=== PATIENT | female | born 1950 | race Caucasian/White ===

== ENCOUNTER → 2017-04-05 | Outpatient (CLI) | payer OTHER ==
[~2017-04-05] MED LIST: LEVO75TA PO; OXYB1TAB31 PO; SIMV20TA2 PO
--- NOTE | 2017-04-05 16:10 | DIAGNOSTIC IMAGING REPORT ---
KUB HISTORY: Generalized abdominal pain. Right flank pain. COMPARISON: None. FINDINGS: The bowel gas pattern is unremarkable. There are no dilated loops of small bowel to suggest an obstruction. Moderate stool within the colon. Round calcifications in the deep pelvis are nonspecific but favor phleboliths. There is 1.8 cm stone overlying the right renal shadow. This could reside within the renal pelvis. No left renal calculi. Midline sutures material is noted. No pneumoperitoneum or pneumatosis. There is an additional 1 cm round calcification within the right upper quadrant which may represent a gallstone. IMPRESSION: 1. A 1.8 cm stone overlying the right renal shadow. This could reside within the right renal pelvis. 2. An additional round calcification within the right upper quadrant which may represent a gallstone. 3. Moderate well-formed stool seen throughout the colon. Electronically signed by: Hayder Montoya M.D. 04/05/2017 4:09 PM Dictated Date/Time: 04/05/2017 4:07 PM
== END | disposition home or self-care (01) ==
LOC: C.RAD1850 15:31
PROVIDERS: ATTEND Physician Assistant
DX: R10.9 Unspecified abdominal pain (principal)

== ENCOUNTER → 2017-07-28 | Outpatient (CLI) | payer OTHER ==
[2017-07-28 16:37] LABS: HEMOGLOBIN 14.4 g/dL (12.0-16.0); MEAN CELL VOLUME 87.8 fL (80-100); MEAN CORPUSCULAR HEMOGLOBIN 28.7 pg (25-34); MEAN CORPUSCULAR HGB CONC 32.7 g/dl (32-36); PLATELET COUNT 187 K/uL (130-400); RED CELL DISTRIBUTION WIDTH CV 13.5 % (11.5-14.5); RED CELL DISTRIBUTION WIDTH SD 43.2 fL (36.4-46.3); WHITE BLOOD COUNT 5.57 K/uL (4.8-10.8)
[2017-07-28 17:06] LABS: ALT/SGPT 19 U/L (12-78); AST/SGOT 9 U/L (15-37); BLOOD UREA NITROGEN 14 mg/dl (7-18); CALCIUM 9.7 mg/dl (8.5-10.1); CARBON DIOXIDE 26 mmol/L (21-32); CREATININE 0.78 mg/dl (0.60-1.20); GLUCOSE 96 mg/dl (70-99); POTASSIUM 3.8 mmol/L (3.5-5.1); SODIUM 140 mmol/L (136-145)
[2017-07-28 17:17] LABS: CHOLESTEROL 224 mg/dl (0-200); LDL CHOLESTEROL CALCULATED 134 mg/dl
== END | disposition home or self-care (01) ==
LOC: C.LAB1850 15:36
PROVIDERS: ATTEND Internal Medicine
DX: E03.9 Hypothyroidism, unspecified (principal); E78.5 Hyperlipidemia, unspecified; K21.9 Gastro-esophageal reflux disease without esophagitis; R10.9 Unspecified abdominal pain

== ENCOUNTER 2024-12-30 08:20 | Observation (INO) ==
--- NOTE | 2024-12-30 08:52 | Emergency Department Note ---
Impression & Plan Acute right flank pain, Difficulty urinating, Bilateral ureteral calculi ED Provider Note NAME: Amrita LUTHER AGE: 74 SEX: Female INFORMANT: Patient ED PROVIDER(S): Chu Sapp MD CHIEF COMPLAINT: Flank pain and urinary issues PLAN: Disposition: Admitted Outpatient prescription management: none Referral: None MEDICAL DECISION MAKING: Patient presented because of flank pain. Workup was initiated. CBC and chemistry panel did reveal mild RONNELL. Urinalysis revealed no clear evidence of infection. CT imaging performed and patient was found to have bilateral ureterolithiasis with hydronephrosis. This was very concerning given the lack of urine output and RONNELL. Patient was covered with a dose of IV Rocephin and consultation was made with urology, Dr. Acuña. He recommended emergent urologic intervention. He will see the patient and patient will be admitted by the hospitalist service. Consultation was made with the [facility] hospitalist service. Patient was admitted for further management. Care/management discussed with: investment banking manager, hospitalist, urology Level of care consideration(s): After review of the information above and other included data, I feel the patient requires escalation of care to admission Triage Nursing notes: reviewed and agree them. Vital Signs: reviewed and remarkable for no significant abnormalities Additional History obtained from: none Chronic Medical/Social Conditions affecting care: History of kidney stones Prior/ Outside/ External records reviewed: none Differential Diagnosis: Renal colic, UTI, urinary retention, appendicitis, diverticulitis, mesenteric ischemia, aortic pathology, infections, inflammatory bowel disease, PUD, biliary pathology, as well as other pathologies. Diagnostics, independently interpreted by me: ECG: none Cardiac Monitoring: Cardiac monitoring ordered by me: The patient was placed on continuous cardiac monitoring and observed. It revealed a normal sinus rhythm at 75 beats per minute without ectopy or evidence of dysrhythmia. Medical decision rules: none Imaging studies: CT scan as above HPI: 74 year old Female arrives for evaluation of right flank pain and difficulty urinating. This started a few days ago and is worsening since yesterday. Patient states she has had difficulty urinating since 2100 hrs. last night.. The patient also notes the following associated symptoms, right flank pain. Patient also notes passing a kidney stone 3 days ago. She felt better and thought she was in the clear. The patient has taken nabumetone for relieving factors. Current pain is rated as 6/10. Pt denies LOC, headache, fevers, chills, diaphoresis, visual changes, neck pain, chest pain, breathing difficulties, nausea, vomiting, Left back pain, melena, hematochezia, numbness, weakness, or other complaints.. PAST MEDICAL HISTORY: See Below, kidney stones, hypothyroidism PAST SURGICAL HISTORY: See Below, SOCIAL HISTORY: See Below, retired HOME MEDICATIONS: See Below ALLERGIES: See Below VITALS: See Below PHYSICAL EXAMINATION: GENERAL: Awake, alert, uncomfortable-appearing, in no distress HENT: Normocephalic, atraumatic. Oropharynx unremarkable. EYES: Normal conjunctiva. Sclera non-icteric. NECK: Inspection normal. Non-tender. Supple. No nuchal rigidity. FROM. No masses. RESPIRATORY: Clear to auscultation. No wheezes. No rales. Normal respiratory effort. CARDIAC: Normal rate. Normal rhythm. No murmurs. No rubs. Extremities warm and well perfused. Pulses equal. No JVD. GI: Soft, non-distended. Suprapubic tenderness to palpation. No rebound or guarding. No masses. RECTAL: Deferred. MUSCULOSKELETAL: Atraumatic. Chest examination reveals no tenderness. The back is symmetrical on inspection without obvious abnormality. There is right CVA tenderness to palpation. No joint edema. LOWER EXTREMITIES: Calves are equal size bilaterally and non-tender. No edema. No discoloration. NEURO: Normal sensorium. No sensory or motor deficits noted. SKIN: No rash or jaundice noted. PROCEDURES: none CRITICAL CARE: none OBSERVATION NOTE: none Past Med/Surg History Problem List (Updated 12/30/24 @ 20:04 by Chu Sapp MD) RONNELL (acute kidney injury) Anuria Bilateral kidney stones Bilateral ureteral calculi (Acute) Difficulty urinating (Acute) Acute right flank pain (Acute) Hyperparathyroidism Complicated migraine Current use of proton pump inhibitor Calf pain Lyme disease Vitamin D deficiency (Acute) Nephrolithiasis (Acute) Irritable bowel syndrome with diarrhea (Acute) Hypothyroidism (Acute) Hyperlipidemia (Acute) Gastro-esophageal reflux disease with esophagitis (Acute) Medical History (Updated 12/30/24 @ 20:04 by Chu Sapp MD) Kidney stones Stomach pain Cancer of skin of back removed in office Hypothyroidism Surgical History History of surgery on arm left arm x2 History of gynecologic surgery D&E History of open reduction and internal fixation (ORIF) procedure left ankle--hardware in place History of cystoscopy x2 History of colonoscopy History of esophagogastroduodenoscopy (EGD) History of wisdom tooth extraction S/P exploratory laparotomy at age 12 S/P section Family History Brother Chronic liver disease Coronary heart disease Alcoholism Father Skin cancer Prostate cancer Alcoholism Colorectal cancer Stroke Mother Skin cancer Breast cancer Colorectal cancer Grandmother (Maternal) Coronary heart disease Daughter Down syndrome Other No family history of adverse response to anesthesia Social History Smoking Status: Never smoker Second Hand Exposure: No; Do You Dip or Chew Tobacco: No; Hx Alcohol Use: Yes Alcohol type: hard liquor Hx Substance Use: No Preferred Language: Slovenian Communication Ability: Effective Visual Impairment: No Limitations Hearing Ability: Normal Authorization Manager Required: No Beliefs That Will Affect Care: None marital status: Current Living Situation: Family Current Living Situation Comment: Son and daughter current occupational status: employed current occupation: clinical lab scientist Other Information That Helps Us Care for You: No Feels Safe at Home: Yes Safety Concerns: Feels Safe At This Time Physical Activity Frequency: Does not Exercise Seatbelt Use: always Assistive Devices: Glasses Allergies Allergies Allergy/AdvReac Type Severity Reaction Status Date / Time Iodinated Contrast Media Allergy Severe ANAPHYLAXIS Verified 12/30/24 09:50 WITH IVP DYE codeine Allergy Mild ITCHING Verified 12/30/24 09:50 AND NERVOUSNESS Home Meds Home Medications Medication Instructions Recorded Confirmed diphenhydramine HCl 25 mg tablet 25 - 50 mg PO DAILY PRN 02/05/19 12/30/24 (Benadryl Allergy) sleep/allergy symptoms cholecalciferol (vitamin D3) 50 50 mcg PO HS 11/02/20 12/30/24 mcg (2,000 unit) tablet (Vitamin D3) multivitamin 1 tab PO DAILY 12/30/24 12/30/24 nabumetone 500 mg tablet 500 mg PO BID PRN Pain 12/30/24 12/30/24 Previous Rx's Medication Instructions Recorded mecobalamin (vitamin B12) 1,000 1,000 mcg PO DAILY #30 tabs 08/25/21 mcg chewable tablet amlodipine 2.5 mg tablet 2.5 mg PO DAILY #90 tabs 05/18/24 escitalopram oxalate 10 mg tablet 10 mg PO HS #90 tabs 05/18/24 (Lexapro) levothyroxine 75 mcg tablet 75 mcg PO QAM #90 tabs 05/18/24 simvastatin 20 mg tablet 20 mg PO HS #90 tabs 05/18/24 Results & Data (ED) Vital Signs Vital Signs - 24 hr 12/30/24 08:22 12/30/24 08:46 12/30/24 08:48 Temperature 36.6 C 36.9 C Temperature Source Temporal Artery Scan Oral Pulse Rate 77 73 Pulse Rate [Right Finger] 73 Pulse Rhythm [Right Finger] Regular Respiratory Rate 20 14 14 Respiratory Effort / Characteristics Non-Labored Respiratory Depth Normal Respiratory Pattern Regular Blood Pressure 185/88 H Blood Pressure [Left Arm] 167/96 H Blood Pressure Mean 120 Blood Pressure Mean [Left Arm] 119 Blood Pressure Position Sitting Blood Pressure Position [Left Arm] Lying Pulse Oximetry 96 94 95 Oxygen Delivery Method Room Air Room Air Room Air Sepsis Recent Fever Within 48 Hours No Sepsis New/Unexplained Change in Mental Status No Sepsis Action Taken by Nursing No Action Required 12/30/24 08:53 12/30/24 10:29 12/30/24 11:04 Temperature Temperature Source Pulse Rate 75 63 Pulse Rate [Right Finger] 70 Pulse Rhythm [Right Finger] Respiratory Rate 21 20 Respiratory Effort / Characteristics Non-Labored Respiratory Depth Normal Respiratory Pattern Regular Blood Pressure 187/94 H Blood Pressure [Left Arm] 171/92 H Blood Pressure Mean Blood Pressure Mean [Left Arm] 118 Blood Pressure Position Blood Pressure Position [Left Arm] Lying Pulse Oximetry 97 94 Oxygen Delivery Method Room Air Room Air Sepsis Recent Fever Within 48 Hours Sepsis New/Unexplained Change in Mental Status Sepsis Action Taken by Nursing Laboratory Data 12/30/24 08:34 12/30/24 08:34 Lab Results 12/30/24 Range/Units 08:34 WBC 7.76 (4.8-10.8) K/ul RBC 4.55 (4.20-5.40) M/uL Hgb 13.2 (12.0-16.0) g/dl Hct 40.3 (37.0-47.0) % MCV 88.6 (80.0-100.0) fL MCH 29.0 (25.0-34.0) pg MCHC 32.8 (32.0-36.0) g/dL RDW Std Deviation 44.9 (36.4-46.3) fL RDW Coeff of Parul 13.9 (11.5-14.5) % Plt Count 186 (130-400) K/uL MPV 11.1 (9.4-12.4) fL Immature Gran % (Auto) 0.3 % Neut % (Auto) 74.7 % Lymph % (Auto) 13.7 % Twiggs % (Auto) 8.6 % Eos % (Auto) 1.8 % Baso % (Auto) 0.9 % Neut # (Auto) 5.80 (1.40-6.50) K/uL Lymph # (Auto) 1.06 L (1.20-3.40) K/uL Twiggs # (Auto) 0.67 H (0.11-0.59) K/uL Eos # (Auto) 0.14 (0.00-0.50) K/uL Baso # (Auto) 0.07 (0.00-0.20) K/uL Immature Gran # (Auto) 0.02 (0.01-0.20) K/uL Sodium 142 (136-145) mmol/L Potassium 4.1 (3.5-5.1) mmol/L Chloride 109 H (98-107) mmol/L Carbon Dioxide 27 (21-32) mmol/L Anion Gap 6 (3-11) BUN 18 (6-23) mg/dl Creatinine 1.35 H (0.6-1.2) mg/dl Est Cr Clr Drug Dosing 37.6 ml/min eGFR 40.98 BUN/Creatinine Ratio 13.3 (10-20) Glucose 101 H (70-99(Fasting)) mg/dl Calcium 10.5 H (8.6-10.3) mg/dl Total Bilirubin 0.5 (0.2-1.0) mg/dl AST 15 (13-39) U/L ALT 15 (7-52) U/L Alkaline Phosphatase 88 (34-104) U/L Total Protein 7.0 (6.0-8.3) gm/dl Albumin 4.0 (3.4-5.0) gm/dl Globulin 3.0 (2.5-4.0) gm/dl Albumin/Globulin Ratio 1.3 (0.9-2) Lipase 42 (11-82) U/L Administered Medications Parenteral Electrolytes (Plasma-Lyte A Ph 7.4) 1,000 mls @ 80 mls/hr IV .[id number] MOO Stop: 01/02/25 13:03 Last Admin: 12/30/24 13:36 Dose: 80 mls/hr Documented By: NORBERTO Oxybutynin Chloride (Oxybutynin Chloride 5 Mg Tab) 5 mg PO BID MOO Stop: 01/29/25 13:29 Last Admin: 12/30/24 14:09 Dose: 5 mg Documented By: NORBERTO Phenazopyridine HCl (Phenazopyridine Hcl 200 Mg Tab) 200 mg PO TID MOO Stop: 01/02/25 13:59 Last Admin: 12/30/24 14:09 Dose: 200 mg Documented By: NORBERTO Tamsulosin HCl (Tamsulosin Hcl 0.4 Mg Cap) 0.4 mg PO QAM MOO Stop: 01/29/25 13:29 Last Admin: 12/30/24 14:09 Dose: 0.4 mg Documented By: NORBERTO Tramadol HCl (Tramadol Hcl 50 Mg Tablet) 50 mg PO Q4H PRN PRN Reason: moderate to severe pain Stop: 01/29/25 13:03 Last Admin: 12/30/24 13:36 Dose: 50 mg Documented By: NORBERTO Discontinued Medications Diatrizoate Meglumine (Diatrizoate Meglumine 30% 100ml Vial) 33 ml INSTIL ONCE ONE Stop: 12/30/24 12:03 Last Admin: 12/30/24 12:03 Dose: 33 ml Documented By: [id number] Hydromorphone HCl (Hydromorphone Inj 0.5 Mg/0.5 Ml Syr) 0.25 mg IV Q15M PRN PRN Reason: Pain Stop: 01/13/25 08:41 Last Admin: 12/30/24 09:37 Dose: 0.25 mg Documented By: jayant Ceftriaxone Sodium (Rocephin) 2,000 mg in 50 mls @ 100 mls/hr IV NOW STA Stop: 12/30/24 10:58 Last Infusion: 12/30/24 12:51 Dose: Infused Documented By: Admin: 12/30/24 10:44 Dose: 100 mls/hr Documented By: JUNAID Ondansetron HCl (Ondansetron Inj 2 Mg/Ml 2 Ml Vial) 4 mg IV NOW STA Stop: 12/30/24 08:43 Last Admin: 12/30/24 09:37 Dose: 4 mg Documented By: cad Imaging Data Radiologist's Impression: Abdomen/Pelvis CT 12/30/24 08:34 CT SCAN OF THE ABDOMEN AND PELVIS WITHOUT IV CONTRAST CLINICAL HISTORY: Right flank pain COMPARISON STUDY: Abdominal x-rays dated 04/05/2017 TECHNIQUE: CT scan of the abdomen and pelvis is performed from the lung bases to the proximal femora. Images are reviewed in the axial, sagittal, and coronal planes. IV contrast was not administered for this examination. A dose lowering technique was utilized adhering to the principles of ALARA. CT DOSE: 1345.86 mGy.cm FINDINGS: Lung bases: The heart is mildly enlarged noting trace pericardial effusion. The coronary arteries are densely calcified. There are scattered calcified granulomas. The lung bases are otherwise clear noting bibasilar scarring/atelectasis. Liver: The unenhanced liver is normal in size, contour, and attenuation. There is no intrahepatic biliary ductal dilatation. Gallbladder: There are calcified gallstones with no CT evidence of acute cholecystitis. Spleen: Normal in size and attenuation. Pancreas: The unenhanced pancreas is grossly unremarkable. Adrenal glands: Unremarkable. Kidneys: There is asymmetric cortical atrophy of the right kidney as compared to the left. There are at least 2 obstructing calculi in the distal left ureter protruding from the vascular dural junction seen on images #308 and #310. These measure up to 7 mm and cause moderate left hydroureteronephrosis. There are at least 3 additional punctate nonobstructing right renal calculi. There is a 1.9 cm obstructing calculus at the right ureteropelvic junction seen on image #152. This causes severe right-sided hydronephrosis. A nonobstructing stone or cluster of stones in the right lower pole measures up to 1.4 cm in aggregate dimension. There is no evidence of contour deforming renal mass lesion. Abdominal vasculature: The abdominal aorta is normal in course and caliber noting mild atherosclerotic calcification. Bowel: There is moderate diverticulosis of left colon without CT evidence of acute diverticulitis. No bowel obstruction is seen. There is a tiny duodenal diverticulum. The appendix is well-visualized and normal. Peritoneum: There is no intraperitoneal free air or abdominal ascites. Postsurgical change is noted in the ventral abdominal wall. There is a fat- containing umbilical hernia. Lymphadenopathy: None. Pelvic viscera: The bladder is decompressed and grossly unremarkable. The uterus and adnexa are normal as visualized. Skeletal structures: The skeletal structures are osteopenic. There is mild lumbosacral spondylosis. Sclerotic change is noted in the pubic symphysis. No lytic or blastic lesions are seen. IMPRESSION: 1. There are at least 2 calculi in the distal left ureter/protruding from the left vesicoureteral junction which measure up to 7 mm. This causes moderate left hydroureteronephrosis. 2. There is a 1.9 cm obstructing calculus at the right ureteropelvic junction. This causes severe right-sided hydronephrosis. 3. There is asymmetric cortical atrophy of the right kidney as compared to left. The large right renal calculus was also seen by x-ray in 2017 and given the asymmetric atrophy may be chronic. 4. Additional bilateral nonobstructing renal calculi as above. 5. Cardiomegaly noting coronary artery atherosclerosis. 6. Cholelithiasis. 7. Colonic diverticulosis without CT evidence of acute diverticulitis. 8. Additional findings as above. ACT 112: Negative or not required by law. Electronically signed by: Alberto Leslie M.D. 12/30/2024 10:16 AM Discharge Plan Visit Data Chief Complaint: Urinary Symptoms Stated Complaint: URINARY BLOCKAGE ED Provider: Chu Sapp Discharge Problem: Acute right flank pain, Difficulty urinating, Bilateral ureteral calculi Patient Disposition: Admitted As Inpatient Condition: Serious Discharge Instructions Interventions: ED Discharge Assessment Last Done: 12/30/24 11:04
[2024-12-30 09:24] LABS: Hematocrit (blood only) 40.3 % (37.0-47.0); Hemoglobin 13.2 g/dl (12.0-16.0); Immature Granulocytes # (auto) 0.02 K/uL (0.01-0.20); Immature Granulocytes % (auto) 0.3 %; Mean Corpuscular Hemoglobin 29.0 pg (25.0-34.0); Mean Corpuscular Volume 88.6 fL (80.0-100.0); Platelet Count 186 K/uL (130-400); RDW Standard Deviation 44.9 fL (36.4-46.3); Red Blood Count 4.55 M/uL (4.20-5.40); White Blood Count 7.76 K/ul (4.8-10.8)
[2024-12-30] MEDS: ONDANSETRON INJ 2 MG/ML 2 ML VIAL IV STA (09:37)
[2024-12-30] MEDS: HYDROmorphone INJ 0.5 MG/0.5 ML SYR IV PRN ×2 (09:37→20:42)
[2024-12-30 09:46] LABS: Alanine Aminotransferase 15.0 U/L (7-52); Albumin Globulin Ratio 1.3 (0.9-2); Alkaline Phosphatase 88.0 U/L (34-104); Anion Gap 6.0 (3-11); Bilirubin,Total 0.5 mg/dl (0.2-1.0); Blood Urea Nitrogen 18.0 mg/dl (6-23); Calcium 10.5 mg/dl (8.6-10.3); Carbon Dioxide 27.0 mmol/L (21-32); Chloride 109.0 mmol/L (98-107); Creatinine Clr Calc Pharmacy 37.6 ml/min; Globulin 3.0 gm/dl (2.5-4.0); Glucose 101.0 mg/dl (70-99(Fasting)); Lipase 42.0 U/L (11-82); Potassium 4.1 mmol/L (3.5-5.1); Sodium 142.0 mmol/L (136-145); Total Protein 7.0 gm/dl (6.0-8.3)
[2024-12-30 10:02] LABS: Appearance Urine Clear (Clear); Bacteria Urine Automated None Seen (None Seen); Cast Urine Automated 0-2 /lpf (0-2); Epithelial Cell Urine Auto 0-2 /hpf (0-2); Glucose Urine UA Negative (Negative); RBC Urine Automated >20 /hpf (0-2); WBC Urine Automated >50 /hpf (0-5)
--- NOTE | 2024-12-30 10:18 | CT Scan Report ---
CT SCAN OF THE ABDOMEN AND PELVIS WITHOUT IV CONTRAST CLINICAL HISTORY: Right flank pain COMPARISON STUDY: Abdominal x-rays dated 04/05/2017 TECHNIQUE: CT scan of the abdomen and pelvis is performed from the lung bases to the proximal femora. Images are reviewed in the axial, sagittal, and coronal planes. IV contrast was not administered for this examination. A dose lowering technique was utilized adhering to the principles of ALARA. CT DOSE: 1345.86 mGy.cm FINDINGS: Lung bases: The heart is mildly enlarged noting trace pericardial effusion. The coronary arteries are densely calcified. There are scattered calcified granulomas. The lung bases are otherwise clear noti ng bibasilar scarring/atelectasis. Liver: The unenhanced liver is normal in size, contour, and attenuation. There is no intrahepatic danica iary ductal dilatation. Gallbladder: There are calcified gallstones with no CT evidence of acute cholecystitis. Spleen: Normal in size and attenuation. Pancreas: The unenhanced pancreas is grossly unremarkable. Adrenal glands: Unremarkable. Kidneys: There is asymmetric cortical atrophy of the right kidney as compared to the left. There are at least 2 obstructing calculi in the distal left ureter protruding from the vascular dural junction seen on images #308 and #310. These measure up to 7 mm and cause moderate left hydroureteronephrosis. There are at least 3 additional punctate nonobstructing right renal calculi. There is a 1.9 cm obstr ucting calculus at the right ureteropelvic junction seen on image #152. This causes severe right-side d hydronephrosis. A nonobstructing stone or cluster of stones in the right lower pole measures up to 1.4 cm in aggregate dimension. There is no evidence of contour deforming renal mass lesion. Abdominal vasculature: The abdominal aorta is normal in course and caliber noting mild atheroscleroti c calcification. Bowel: There is moderate diverticulosis of left colon without CT evidence of acute diverticulitis. No bowel obstruction is seen. There is a tiny duodenal diverticulum. The appendix is well-visualized a nd normal. Peritoneum: There is no intraperitoneal free air or abdominal ascites. Postsurgical change is noted i n the ventral abdominal wall. There is a fat-containing umbilical hernia. Lymphadenopathy: None. Pelvic viscera: The bladder is decompressed and grossly unremarkable. The uterus and adnexa are kirsten l as visualized. Skeletal structures: The skeletal structures are osteopenic. There is mild lumbosacral spondylosis. S clerotic change is noted in the pubic symphysis. No lytic or blastic lesions are seen. IMPRESSION: 1. There are at least 2 calculi in the distal left ureter/protruding from the left vesicoureteral naomie ction which measure up to 7 mm. This causes moderate left hydroureteronephrosis. 2. There is a 1.9 cm obstructing calculus at the right ureteropelvic junction. This causes severe rig ht-sided hydronephrosis. 3. There is asymmetric cortical atrophy of the right kidney as compared to left. The large right richard l calculus was also seen by x-ray in 2017 and given the asymmetric atrophy may be chronic. 4. Additional bilateral nonobstructing renal calculi as above. 5. Cardiomegaly noting coronary artery atherosclerosis. 6. Cholelithiasis. 7. Colonic diverticulosis without CT evidence of acute diverticulitis. 8. Additional findings as above. ACT 112: Negative or not required by law. Electronically signed by: Alberto Leslie M.D. 12/30/2024 10:16 AM
--- NOTE | 2024-12-30 10:40 | Anesthesiology Consultation ---
Date of Service December 30, 2024 Assessment & Plan Chart Review Chart Review: Acceptable Risk for Surgery and Patient NOT seen in Pre Admission Testing Consults Requested none ASA [id number] Proposed Anesthesia Anesthesia Type: MAC History Surgery Operation Date: 12/30/24 10:30 Proposed Procedures p Cystoscopy - Anil Acuña DO Height/Weight Height: 5 ft 4 in Weight: 83.3 kg Allergies Allergy/AdvReac Type Severity Reaction Status Date / Time Iodinated Contrast Media Allergy Severe ANAPHYLAXIS Verified 12/30/24 09:50 WITH IVP DYE codeine Allergy Mild ITCHING Verified 12/30/24 09:50 AND NERVOUSNESS Medications Home Medications Medication Instructions Recorded Confirmed Last Taken diphenhydramine HCl 25 mg tablet 25 - 50 mg PO DAILY PRN 02/05/19 12/30/24 07/15/19 (Benadryl Allergy) sleep/allergy symptoms cholecalciferol (vitamin D3) 50 50 mcg PO HS 11/02/20 12/30/24 12/29/24 mcg (2,000 unit) tablet (Vitamin D3) mecobalamin (vitamin B12) 1,000 1,000 mcg PO DAILY #30 tabs 08/25/21 12/30/24 12/29/24 mcg chewable tablet amlodipine 2.5 mg tablet 2.5 mg PO DAILY #90 tabs 05/18/24 12/30/24 12/29/24 escitalopram oxalate 10 mg tablet 10 mg PO HS #90 tabs 05/18/24 12/30/24 12/29/24 (Lexapro) levothyroxine 75 mcg tablet 75 mcg PO QAM #90 tabs 05/18/24 12/30/24 12/30/24 simvastatin 20 mg tablet 20 mg PO HS #90 tabs 05/18/24 12/30/24 12/29/24 multivitamin 1 tab PO DAILY 12/30/24 12/30/24 12/29/24 nabumetone 500 mg tablet 500 mg PO BID PRN Pain 12/30/24 12/30/24 12/30/24 Active Medications Generic Name Dose Route Start Last Admin Trade Name Freq PRN Reason Stop Dose Admin Hydromorphone HCl 0.25 mg 12/30/24 08:42 12/30/24 09:37 Hydromorphone Inj 0.5 Mg/0.5 Ml Syr IV 01/13/25 08:41 0.25 mg Q15M PRN Administration Pain Past Medical History Medical History Kidney stones Stomach pain Cancer of skin of back removed in office Hypothyroidism obese hyperparathyroidism migraines Gerd Hx/o Lyme disease ASCVD Ao/Carotids RONNELL HLD HTN Exercise / Class Metabolic Activity II 4-5 Yardwork/Stairs/Walk up hill Past Family History Family History Brother Chronic liver disease Coronary heart disease Alcoholism Father Skin cancer Prostate cancer Alcoholism Colorectal cancer Stroke Mother Skin cancer Breast cancer Colorectal cancer Grandmother (Maternal) Coronary heart disease Daughter Down syndrome Other No family history of adverse response to anesthesia Past Surgical History Surgical History History of surgery on arm left arm x2 History of gynecologic surgery D&E History of open reduction and internal fixation (ORIF) procedure left ankle--hardware in place History of cystoscopy x2 History of colonoscopy History of esophagogastroduodenoscopy (EGD) History of wisdom tooth extraction S/P exploratory laparotomy at age 12 S/P section Past Anesthesia History No Hx of Anesthesia Complications and No Family Hx of Anesthesia Complications History of PONV No Hx of PONV and No Hx of Motion Sickness Social History Smoking Status: Never smoker Do You Dip or Chew Tobacco: No Hx Alcohol Use: Yes Alcohol type: hard liquor alcohol intake frequency: other Hx Substance Use: No substance use type: does not use Physical Exam Vital Signs Last Vital Signs Temp 36.9 C 12/30/24 08:46 Pulse 70 12/30/24 10:29 Resp 21 12/30/24 10:29 BP 171/92 H 12/30/24 10:29 Pulse Ox 97 12/30/24 10:29 O2 Del Method Room Air 12/30/24 10:29 Testing Laboratory Results 12/30/24 08:34 12/30/24 08:34 Urine Color Yellow 12/30/24 Unknown Urine Appearance Clear (Clear) 12/30/24 Unknown Urine pH 7.5 (4.5-7.5) 12/30/24 Unknown Ur Specific [place] 1.015 (1.000-1.030) 12/30/24 Unknown Urine Protein 2+ (Negative) H 12/30/24 Unknown Urine Glucose (UA) Negative (Negative) 12/30/24 Unknown Urine Ketones Negative (Negative) 12/30/24 Unknown Urine Nitrite Negative (Negative) 12/30/24 Unknown Ur Leukocyte Esterase 2+ (Negative) H 12/30/24 Unknown Urine WBC (Auto) >50 /hpf (0-5) H 12/30/24 Unknown Urine RBC (Auto) >20 /hpf (0-2) H 12/30/24 Unknown U Hyaline Cast (Auto) 0-2 /lpf (0-2) 12/30/24 Unknown U Epithel Cells (Auto) 0-2 /hpf (0-2) 12/30/24 Unknown Urine Bacteria (Auto) None Seen (None Seen) 12/30/24 Unknown Electrocardiogram Date: 03/12/24 Findings: + NSR @ (@ 68 w/occas. PVC's) Echocardiogram Date: 03/15/19 EF: 55% LV Function: normal RWMA: + none Other Findings: + LVH (moderate) and + diastolic dysfunction Valvular Disease: + no significant valvular disease Other Testing 04/27/2024-carotid U/S- + plaques;no sig. H/D stenoses
[2024-12-30] MEDS: cefTRIAXone SODIUM 2,000 MG/50 ML BAG IV STA (10:44)
--- NOTE | 2024-12-30 10:54 | Urology Consultation ---
Date of Consultation December 30, 2024 Assessment & Plan (1) Bilateral ureteral calculi: (2) Bilateral kidney stones: (3) Anuria: (4) RONNELL (acute kidney injury): (5) Hypothyroidism: (6) Irritable bowel syndrome with diarrhea: (7) Nephrolithiasis: (8) Hyperparathyroidism: (9) Acute right flank pain: (10) Difficulty urinating: Plan Patient with bilateral obstructing stones and minimal urine production. Patient had been found to have bilateral obstructing stones in the left distal ureter and right UPJ with significant stone burden bilaterally. Worsening hydronephrosis limited urine production increasing RONNELL and suspicion for anuria. Patient independently assessed, examined, interviewed, and evaluated. Agree with note as above. Patient's vitals and labs were all reviewed. Pertinent values in the HPI and plan section. Imaging was reviewed interpreted by myself. Agree with read. Imaging showing a large stone at the UVJ on the left as well as a large stone at the UPJ on the right. Has severe bilateral hydronephrosis. Suspicion for near complete obstruction bilaterally Vitals were reviewed. Patient is dealing with hypertension. Had subjective fevers at home. Discussed findings extensively with patient and family. Reviewed with consulting physicians/team. Patient is going to be admitted to the hospitalist team for medical management Patient's complicated medical and surgical history was reviewed and summarized above. Patient's surgical, medical, social, and family history were all reviewed with pertinent values as above. Discussed patient's current diagnosis as well as concerns and issues. Reviewed different options moving forward. Discussed potential risks and benefits as well as possible options and concerns. Reviewed potential surgical options and interventions. Discussed potential issues and concerns related to intervention. Risk and benefits were discussed extensively with patient and any available family. Discussed potential risks related to anesthesia. Discussed risks of bleeding infection and injury. Discussed options for conservative measure and maximum expulsion medical therapy and symptom controlled. Discussed ESWL. Discussed Ureteroscopy with extraction and/or laser lithotripsy. Risks and benefits were discussed. Stone free rates were also discussed as well as possibility of multiple procedures. Ureteral stents were discussed as well as post-operative issues and pain management. All questions were answered. Discussed urgent need for intervention secondary to bilateral obstruction discussed possible development of severe issues including possible renal failure. Extensively reviewed options and risk related to infection. Discussed risk related to anesthesia. Patient may also need to have stone partially treated in order to play stent especially with the findings on the left. 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 He is very concerned about being hospitalized for a extended period of time. Will have to see outpatient does after anesthesia and if able to tolerate we will attempt to try to have the patient discharge soon is stabilized possibly tomorrow morning. Risks and benefits discussed at length for procedure. These include bleeding, infection, injury to surrounding tissues or organs, and risks associated with anesthesia. Patient states understanding and agrees to proceed. Will sign consent and proceed with urgent intervention due to considerable threat of life or limb. Plan for cystoscopy with possible bilateral ureteroscopy possible stone treatment possible stent placement bilateral Procedure will be urgent/emergent secondary to bilateral obstruction and anuria History of Present Illness History of Present Illness New consultation for patient with stone, discomfort, obstruction, and ill feelings. Patient felt she was having UTI issues. Presented with increasing flank pain or bother. Found to have severe stone disease bilaterally with bilateral obstructing stones in the ureter. Has had limited urine production since being evaluated in the ER. Has increasing issues with hypertension. Additionally had subjective fevers at home. Patient's issues have increased in severity. Appears to have severe obstruction on the left side from a large UVJ stone. Has a increased burden of stone on the right side in the renal pelvis with a large stone at the UPJ also causing obstruction. Patient developed sudden onset of pain into flank going down and radiating into groin and back in waves comes and goes. Can be severe at times. Patient's labs and vitals were all reviewed patient's imaging was reviewed interpreted by myself. Hemoglobin 13.2 creatinine is elevated 1.35 with concern for developing anuria and impending renal failure. White count is 7.76. Discussed and reviewed patient's family history for any history of stone disease. Also, discussed patient's medical surgery history especially related to any history of urinary issues or stone disease. Patient was going to be admitted and is undergoing observation. Due to findings of severe bilateral obstruction and concern for developing renal failure/anuria did review need for emergent intervention. Patient had last had food at approximately 3 AM. Has been having nausea and ill feelings with the stone. Allergies Allergy/AdvReac Type Severity Reaction Status Date / Time Iodinated Contrast Media Allergy Severe ANAPHYLAXIS Verified 12/30/24 09:50 WITH IVP DYE codeine Allergy Mild ITCHING Verified 12/30/24 09:50 AND NERVOUSNESS Home Medications Medication Instructions Recorded Confirmed Type diphenhydramine HCl 25 mg tablet 25 - 50 mg PO DAILY PRN 02/05/19 12/30/24 History (Benadryl Allergy) sleep/allergy symptoms cholecalciferol (vitamin D3) 50 50 mcg PO HS 11/02/20 12/30/24 History mcg (2,000 unit) tablet (Vitamin D3) mecobalamin (vitamin B12) 1,000 1,000 mcg PO DAILY #30 tabs 08/25/21 12/30/24 Rx mcg chewable tablet amlodipine 2.5 mg tablet 2.5 mg PO DAILY #90 tabs 05/18/24 12/30/24 Rx escitalopram oxalate 10 mg tablet 10 mg PO HS #90 tabs 05/18/24 12/30/24 Rx (Lexapro) levothyroxine 75 mcg tablet 75 mcg PO QAM #90 tabs 05/18/24 12/30/24 Rx simvastatin 20 mg tablet 20 mg PO HS #90 tabs 05/18/24 12/30/24 Rx multivitamin 1 tab PO DAILY 12/30/24 12/30/24 History nabumetone 500 mg tablet 500 mg PO BID PRN Pain 12/30/24 12/30/24 History Patient History Medical History (Updated 12/30/24 @ 10:56 by Anil Acuña DO) Kidney stones Stomach pain Cancer of skin of back removed in office Hypothyroidism Surgical History History of surgery on arm left arm x2 History of gynecologic surgery D&E History of open reduction and internal fixation (ORIF) procedure left ankle--hardware in place History of cystoscopy x2 History of colonoscopy History of esophagogastroduodenoscopy (EGD) History of wisdom tooth extraction S/P exploratory laparotomy at age 12 S/P section Family History Brother Chronic liver disease Coronary heart disease Alcoholism Father Skin cancer Prostate cancer Alcoholism Colorectal cancer Stroke Mother Skin cancer Breast cancer Colorectal cancer Grandmother (Maternal) Coronary heart disease Daughter Down syndrome Other No family history of adverse response to anesthesia Social History (Reviewed 11/19/24 @ 14:51 by JUANA Tomlin Smoking Status: Never smoker Second Hand Exposure: No; Do You Dip or Chew Tobacco: No; Hx Alcohol Use: Yes Alcohol type: hard liquor Hx Substance Use: No Preferred Language: Montenegrin Communication Ability: Effective Visual Impairment: No Limitations Hearing Ability: Normal Grouter Helper Required: No Beliefs That Will Affect Care: None marital status: Current Living Situation: Spouse and Family Current Living Situation Comment: Lives with and daughter with down syndrome and son current occupational status: employed current occupation: [employer] Feels Safe at Home: Yes Physical Activity Frequency: Does not Exercise Seatbelt Use: always Assistive Devices: Glasses Review of Systems Review of Systems: All systems reviewed & are unremarkable except as noted in HPI & below Physical Exam Physical Exam: General: Alert and oriented x 3 in no acute distress. Advanced age HEENT: Normocephalic Atraumatic. Inspection normal. Cranial Nerves 2-12 Grossly intact. Nares are clear. Neck is supple. Normal inspection of face. Normal inspection of neck. Neurologic: No deficits on inspection. Baseline for motor function and sensory. Psychologic: Normal affect. Respiratory: Nonlabored. No use of accessory muscles. No tachypnea or dyspnea. Cardiovascular: No tachycardia Skin: [place] and Dry. No rashes or visible lesions. Extremities: Moving without issues. No motor deficits on inspection Lymphatics: No edema Abdomen: Soft Non-distended. No rebound or guarding. : Scant urine production Results & Data Vital Signs (Past 12 Hours) Vital Signs Temp Pulse Pulse Resp BP BP Pulse Ox 12/30/24 10:29 70 21 171/92 H 97 12/30/24 08:53 75 12/30/24 08:48 73 14 95 12/30/24 08:46 36.9 C 73 14 167/96 H 94 12/30/24 08:22 36.6 C 77 20 185/88 H 96 O2 Del Method 12/30/24 10:29 Room Air 12/30/24 08:53 12/30/24 08:48 Room Air 12/30/24 08:46 Room Air 12/30/24 08:22 Room Air PG Care Time/CCT Total # of Minutes Spent Total Time Spent with Patient: Total time spent is greater than 50% in coordination of care (as documented) at patient's floor/unit and/or counseling patient: Coding Level of Care Code 77024 INT INP/OBS CARE MIN Diagnoses Bilateral ureteral calculi N20.1 Bilateral kidney stones N20.0 Anuria R34 RONNELL (acute kidney injury) N17.9 Hypothyroidism E03.9 Irritable bowel syndrome with diarrhea K58.0 Nephrolithiasis N20.0 Hyperparathyroidism E21.3 Acute right flank pain R10.9 Difficulty urinating R39.198
--- NOTE | 2024-12-30 11:16 | History & Physical Report ---
Date of Service December 30, 2024 Assessment & Plan (1) RONNELL (acute kidney injury): (2) Bilateral kidney stones: (3) Difficulty urinating: (4) Bilateral ureteral calculi: Plan #B/l ureteral stones #B/l hydronephrosis #RONNELL [facility] urology on board, pt taken to OR - flomax, pyridium, oxybutynin ordered per URology recs - UA negative for UTI - s/p 1 dose of Ceftriaxone in the ED, hold further abx at this time - pain control regimen ordered #HTN - current elevation in BP due to pain - cont amlodipine #HLD - cont statin #Hypothyroidism - cont levothyroxine #DVT ppx: SCDs, ambulation D/c pending improvement in renal function History of Present Illness Chief Complaint: Difficulty urinating and pubic pain Primary Care Provider: Chong Mcdermott MD 74 yo F with PMHx of HTN, HLD, Hypothyroidism presents to the hospital for the evaluation of suprapubic pain and absent urination. Pt states that she had some suprapubic pain earlier in the week and on , she felt like she passed a stone. Then the same pain started again yesterday evening. Last evening and overnight, she tried to urinate and nothing came out. This morning, she also noticed right flank pain which brought her into the hospital for further evaluation. She denied hematuria, fever, dysuria. She currently has some constipation and headache. ED workup revealed mild RONNELL and CT scan showing b/l obstructing ureteral stone. Hospitalist consulted for admission. Allergies Allergy/AdvReac Type Severity Reaction Status Date / Time Iodinated Contrast Media Allergy Severe ANAPHYLAXIS Verified 12/30/24 09:50 WITH IVP DYE codeine Allergy Mild ITCHING Verified 12/30/24 09:50 AND NERVOUSNESS Home Medications Medication Instructions Recorded Confirmed Type diphenhydramine HCl 25 mg tablet 25 - 50 mg PO DAILY PRN 02/05/19 12/30/24 History (Benadryl Allergy) sleep/allergy symptoms cholecalciferol (vitamin D3) 50 50 mcg PO HS 11/02/20 12/30/24 History mcg (2,000 unit) tablet (Vitamin D3) mecobalamin (vitamin B12) 1,000 1,000 mcg PO DAILY #30 tabs 08/25/21 12/30/24 Rx mcg chewable tablet amlodipine 2.5 mg tablet 2.5 mg PO DAILY #90 tabs 05/18/24 12/30/24 Rx escitalopram oxalate 10 mg tablet 10 mg PO HS #90 tabs 05/18/24 12/30/24 Rx (Lexapro) levothyroxine 75 mcg tablet 75 mcg PO QAM #90 tabs 05/18/24 12/30/24 Rx simvastatin 20 mg tablet 20 mg PO HS #90 tabs 05/18/24 12/30/24 Rx multivitamin 1 tab PO DAILY 12/30/24 12/30/24 History nabumetone 500 mg tablet 500 mg PO BID PRN Pain 12/30/24 12/30/24 History Past Med/Surg History Problem List (Updated 12/30/24 @ 10:56 by Anil Acuña DO) RONNELL (acute kidney injury) Anuria Bilateral kidney stones Bilateral ureteral calculi Difficulty urinating (Acute) Acute right flank pain (Acute) Hyperparathyroidism Complicated migraine Current use of proton pump inhibitor Calf pain Lyme disease Vitamin D deficiency (Acute) Nephrolithiasis (Acute) Irritable bowel syndrome with diarrhea (Acute) Hypothyroidism (Acute) Hyperlipidemia (Acute) Gastro-esophageal reflux disease with esophagitis (Acute) Medical History (Updated 12/30/24 @ 10:56 by Anil Acuña DO) Kidney stones Stomach pain Cancer of skin of back removed in office Hypothyroidism Surgical History History of surgery on arm left arm x2 History of gynecologic surgery D&E History of open reduction and internal fixation (ORIF) procedure left ankle--hardware in place History of cystoscopy x2 History of colonoscopy History of esophagogastroduodenoscopy (EGD) History of wisdom tooth extraction S/P exploratory laparotomy at age 12 S/P section Family History Brother Chronic liver disease Coronary heart disease Alcoholism Father Skin cancer Prostate cancer Alcoholism Colorectal cancer Stroke Mother Skin cancer Breast cancer Colorectal cancer Grandmother (Maternal) Coronary heart disease Daughter Down syndrome Other No family history of adverse response to anesthesia Social History Smoking Status: Never smoker Second Hand Exposure: No; Do You Dip or Chew Tobacco: No; Hx Alcohol Use: Yes Alcohol type: hard liquor Hx Substance Use: No Preferred Language: Ukrainian Communication Ability: Effective Visual Impairment: No Limitations Hearing Ability: Normal Rn Midwife Required: No Beliefs That Will Affect Care: None marital status: Current Living Situation: Family Current Living Situation Comment: Son and daughter current occupational status: employed current occupation: clinical laboratory technician Other Information That Helps Us Care for You: No Feels Safe at Home: Yes Safety Concerns: Feels Safe At This Time Physical Activity Frequency: Does not Exercise Seatbelt Use: always Assistive Devices: Glasses Review of Systems Review of Systems: Comprehensive ROS completed and is otherwise negative. Physical Exam Physical Exam: Gen: no acute distress, lying in bed comfortable HEENT: NC/AT, MMM Lungs: nonlabored breathing, CTAB CVS: [id number], RRR Abd: nl bowel sounds, soft, NT / ND : no casey Ext: no edema Neuro: AAOx3 Psych: calm cooperative Results & Data Results & Data Vital Signs (Past 12 Hours) Vital Signs Temp Pulse Pulse Resp BP BP Pulse Ox 12/30/24 11:04 63 20 187/94 H 94 12/30/24 10:29 70 21 171/92 H 97 12/30/24 08:53 75 12/30/24 08:48 73 14 95 12/30/24 08:46 36.9 C 73 14 167/96 H 94 12/30/24 08:22 36.6 C 77 20 185/88 H 96 O2 Del Method 12/30/24 11:04 Room Air 12/30/24 10:29 Room Air 12/30/24 08:53 12/30/24 08:48 Room Air 12/30/24 08:46 Room Air 12/30/24 08:22 Room Air PG Care Time/CCT Total # of Minutes Spent Total Time Spent with Patient: Total time spent is greater than 50% in coordination of care (as documented) at patient's floor/unit and/or counseling patient: Coding Level of Care Code 33587 INT INP/OBS CARE 3/75MIN Diagnoses RONNELL (acute kidney injury) N17.9 Bilateral kidney stones N20.0 Difficulty urinating R39.198 Bilateral ureteral calculi N20.1
[2024-12-30] MEDS ORDERED: ATROPINE SULFATE 0.1 MG/ML 10ML SYR IV PRN (11:22)
[2024-12-30] MEDS ORDERED: NALOXONE HCL 0.4 MG/1 ML VIAL/CARP IV PRN (11:22)
[2024-12-30] MEDS ORDERED: FLUMAZENIL 0.1 MG/1 ML 10 ML VIAL IV PRN (11:22)
[2024-12-30] MEDS ORDERED: PROMETHAZINE HCL 6.25 MG in SODIUM CHLORIDE 0.9% 50 ML IV PRN (11:22)
[2024-12-30] MEDS ORDERED: ONDANSETRON INJ 2 MG/ML 2 ML VIAL IV PRN (11:22)
[2024-12-30] MEDS ORDERED: PROPOFOL IV EMULSION 10 MG/ML 20 ML VIAL IV ONE (11:26)
[2024-12-30] MEDS ORDERED: MIDAZOLAM HCL 1 MG/ML 2ML VIAL ONE (11:28)
[2024-12-30] MEDS: DIATRIZOATE MEGLUMINE 30% 100ML VIAL INSTIL ONE (12:03)
--- NOTE | 2024-12-30 12:10 | Operative Report ---
PG Post Operative Report Pre & Post Diagnosis Operation Date: 12/30/24 10:30 Pre-Op Diagnosis: Anuria, Bilateral Obstructing Stones Post-Op Diagnosis: Anuria, Bilateral Obstructing Stones I identified the patient and participated in the time-out.: Yes Procedure Operation Date: 12/30/24 10:30 Actual Procedures Cystoscopy with Right Ureteral Dilation, Retrograde Pyelogram, Right Kidney Aspiration, Right Stent Insertion Left Ureteroscopy, Ureteral Dilation, Retrograde Pyelogram, Left Laser Lithotripsy, Left Stone basket Extraction, and Left Stent Insertion (Bilateral) - Anil Acuña, Surgeon Anil Acuña, II, DO Reduction Furnace Operator None Estimated Blood Loss 1 Findings Consistent with Post-Op Diagnosis Severely obstructing stones bilaterally. Left stone was impacted at the UVJ and was unable to bypassed utilizing the cystoscope and wire. The right stone was severely obstructing the right UPJ with significant hydronephrosis and hydroureter and tortuosity. Significant manipulation was necessary in order to bypassed the area of obstruction from the large stone. A area of narrowing was noted in the mid ureter. This was dilated. Left stone destroyed to dust and small fragments and larger fragments removed. Left stone was severely impacted in the sidewall medially. A stricture was noted. This was dilated after the stone was displaced. Specimens Stone Fragmentsleft ureter Urine right kidney Drains 6 Fr Multilength bilaterally 18 Turkish silicone catheter Anesthesia Type General Complications none Disposition Disposition: Recovery Room Indications Patient with bothersome stones with bilateral obstruction and development of low urine output. Risks and benefits discussed at length. Description of Procedure Patient was consented and brought back to the operating room. Patient was placed under anesthesia in the supine position and moved to the dorsal lithotomy position. Patient was prepped and draped in the regular sterile fashion. A time out was completed. A 30degree Cystoscope was placed into the bladder and the entire bladder was examined. The UO's were identified. Attention was taken to the right side first. On the right, the UO was cannulized with a catheter and a retrograde pyelogram was completed. A wire was then placed. Narrowing was noted in the mid ureter there was severe acute callosity noted throughout the ureter with hydroureter and hydronephrosis. Minimal contrast was able to enter into the renal pelvis. The catheter was utilized to attempt to bypassed the area of likely stone. Both a 5 Turkish open-ended and a 10 Turkish dual-lumen was utilized. With some manipulation the wire was able to get past the stone. The midportion of the ureter was dilated to 10 Turkish. The stone still appeared to be impacted at the UPJ. Contrast was able to be injected into the renal pelvis using the 5 Turkish open- ended catheter within the renal pelvis. The wire was then replaced. A 6 Turkish multilength stent was then placed significant manipulation was needed in order to advance the stent past the impacted stone. The stents placement was confirmed with fluoroscopy. Attention was then taken to the left side On the left the UO was attempted to be cannulated. The 5 Turkish open-ended catheter would not enter. Utilizing a dual-lumen catheter a wire was able to slightly advance past where the stone appeared to be impacted at the UO. It would not advance further and likely was entrapped around the stone. At this point it was decided to displace and destroyed the stone. The Rigid ureteroscope was taken into the left ureter. The stone was identified. It was displaced upwards. The UO was dilated due to significant stricture. There was severe inflammation noted in the distal ureter proximal to where the stone had been obstructed. A laser fiber was selected and the stones were pulverized to dust and small fragments. Larger fragments were grasped and removed and sent for analysis. The stone was significantly broken up which allowed access into the ureter. The entire area was once again examined. No residual large fragments or areas of concern were noted. The scope was slowly removed with the wire left in place. Contrast was placed through the scope for a pyelogram to assist in stent placement. The entire ureter was examined as the scope was slowly removed. No obstructions or other areas of concern were noted. With the wire in place, a 6 Fr Double J stent was placed. It was confirmed with fluoroscopy. With the stent in place, the bladder was emptied. The scope was removed. A 18 Turkish silicone catheter was placed to assist with management of bladder with possible diuresis after bilateral obstruction. The patient was cleaned, aroused from anesthesia, and transferred to the pacu in stable condition having tolerated the procedure well with no complications. I was present and participated in all aspects of the procedure. The patient will be monitored in the PACU until transferred. Plan to monitor the catheter over the next 24 to 48 hours. Can remove later today or tomorrow depending on how well patient is doing. Will need to maintain stents for approximately 1 to 2 weeks with plans for possible bilateral treatment of stone disease and stent exchange Patient is going to be observed overnight does take care of a offspring with significant developmental delay. Will try to coordinate with hospitalist for discharge and outpatient follow-up. I attest to the content of the Intraoperative Record and any orders documented therein. Any exceptions are noted below.
[2024-12-30] MEDS ORDERED: ACETAMINOPHEN 325 MG TAB PO PRN (13:04)
--- NOTE | 2024-12-30 13:19 | Anesthesiology Progress Note ---
Date of Service December 30, 2024 Anesthesia Post Procedure Vital Signs Vital Signs: Temp Pulse Pulse Pulse Resp BP BP 12/30/24 13:04 36.6 C 61 15 166/71 H 12/30/24 12:45 36.5 C 62 14 156/62 H 12/30/24 12:35 63 16 166/70 H 12/30/24 12:25 66 14 148/60 H 12/30/24 12:15 36.5 C 70 16 158/76 H 12/30/24 11:04 63 20 187/94 H 12/30/24 10:29 70 21 171/92 H 12/30/24 08:53 75 12/30/24 08:48 73 14 12/30/24 08:46 36.9 C 73 14 167/96 H 12/30/24 08:22 36.6 C 77 20 185/88 H Pulse Ox O2 Del Method O2 Flow Rate 12/30/24 13:04 93 Room Air 12/30/24 12:45 95 Room Air 12/30/24 12:35 97 Room Air 12/30/24 12:25 99 Oxymask 4 12/30/24 12:15 99 Oxymask 6 12/30/24 11:04 94 Room Air 12/30/24 10:29 97 Room Air 12/30/24 08:53 12/30/24 08:48 95 Room Air 12/30/24 08:46 94 Room Air 12/30/24 08:22 96 Room Air Pain Intensity Pelvic: Pain Intensity: 5 Transfer of Care Handoff Completed per policy Notes Mental Status: alert / awake / arousable Patient Amnestic to Procedure: Yes Nausea / Vomiting: adequately controlled Pain: adequately controlled Airway Patency, RR, SpO2: stable & adequate BP & HR: stable & adequate Hydration State: stable & adequate Anesthetic Complications: no major complications apparent
[2024-12-30] MEDS: PLASMA-LYTE A 1,000 ML IV SCH (13:36)
[2024-12-30] MEDS: PHENAZOPYRIDINE HCL 200 MG TAB PO SCH (14:09)
[2024-12-30] MEDS: TAMSULOSIN HCL 0.4 MG CAP PO SCH (14:09)
[2024-12-30 16:55] VITALS: RESP 16
[2024-12-30] MEDS: DOCUSATE SODIUM/SENNA 50/8.6MG TAB PO SCH (20:42)
[2024-12-30] MEDS: SIMVASTATIN 20 MG TAB PO SCH (21:44)
[2024-12-30] MEDS: ESCITALOPRAM OXALATE 10 MG TAB PO SCH (21:44)
[2024-12-31] MEDS: LEVOTHYROXINE SODIUM 75 MCG TABLET PO SCH (05:46)
[2024-12-31 07:07] LABS: Hematocrit (blood only) 36.2 % (37.0-47.0); Hemoglobin 11.7 g/dl (12.0-16.0); Immature Granulocytes # (auto) 0.02 K/uL (0.01-0.20); Immature Granulocytes % (auto) 0.4 %; Mean Corpuscular Hemoglobin 28.7 pg (25.0-34.0); Mean Corpuscular Volume 88.7 fL (80.0-100.0); Platelet Count 166 K/uL (130-400); RDW Standard Deviation 44.9 fL (36.4-46.3); Red Blood Count 4.08 M/uL (4.20-5.40); White Blood Count 5.33 K/ul (4.8-10.8)
[2024-12-31 07:40] LABS: Anion Gap 4.0 (3-11); Blood Urea Nitrogen 23.0 mg/dl (6-23); Calcium 9.3 mg/dl (8.6-10.3); Carbon Dioxide 29.0 mmol/L (21-32); Chloride 107.0 mmol/L (98-107); Creatinine Clr Calc Pharmacy 43.4 ml/min; Glucose 94.0 mg/dl (70-99(Fasting)); Magnesium 1.8 mg/dl (1.7-2.4); Potassium 4.1 mmol/L (3.5-5.1); Sodium 140.0 mmol/L (136-145)
--- NOTE | 2024-12-31 08:41 | Fluoroscopy Report ---
INTRAOPERATIVE FLUOROSCOPIC IMAGES: CLINICAL HISTORY: Bilateral retrograde study. COMPARISON: CT of the abdomen and pelvis December 30, 2024 at 9:21 AM. Fluoroscopy time: 3 minutes and 31 seconds. Number of fluoroscopic images: 1 Ka,r: 45.81 mGy FINDINGS: Fluoroscopy was provided during bilateral retrograde exams. A right ureteropelvic junction calculus is noted. There is bilateral hydronephrosis. Proximal aspects of the ureteral stents are wel l-positioned. Distal aspects were not visualized on this fluoroscopic image. IMPRESSION: Fluoroscopy provided during bilateral retrograde pyelograms and bilateral ureteral stent insertion. Electronically signed by: Kd Vines M.D. 12/31/2024 8:40 AM
--- NOTE | 2024-12-31 11:31 | Discharge Summary ---
Discharge Summary Date of Service December 31, 2024 Principal Dx & Hospital Course #1 = Principal Diagnosis (1) RONNELL (acute kidney injury): (2) Bilateral kidney stones: (3) Difficulty urinating: (4) Bilateral ureteral calculi: Plan 74 yo F with PMHx of HTN, HLD, Hypothyroidism presents to the hospital for the evaluation of suprapubic pain and absent urination. She was taken to OR for b/l stent placement. She will need to follow up with Dr. Acuña in about 2 weeks. She was not discharged on any antibiotics as there were no evidence of infection. #B/l ureteral stones #B/l hydronephrosis #RONNELL - resolved - urology recs appreciated, s/p b/l ureteral stents - cont flomax, pyridium, oxybutynin - UA negative for UTI - s/p 1 dose of Ceftriaxone in the ED, hold further abx at this time unless she is having fevers - pain control regimen ordered - outpatient follow up with Dr. Acuña in about 2 weeks. #HTN - elevated BP resolved with pain control - cont amlodipine #HLD - cont statin #Hypothyroidism - cont levothyroxine Admission HPI Per Admitting Provider 74 yo F with PMHx of HTN, HLD, Hypothyroidism presents to the hospital for the evaluation of suprapubic pain and absent urination. Pt states that she had some suprapubic pain earlier in the week and on , she felt like she passed a stone. Then the same pain started again yesterday evening. Last evening and overnight, she tried to urinate and nothing came out. This morning, she also noticed right flank pain which brought her into the hospital for further evaluation. She denied hematuria, fever, dysuria. She currently has some constipation and headache. ED workup revealed mild RONNELL and CT scan showing b/l obstructing ureteral stone. Hospitalist consulted for admission. Discharge Exam Gen: no acute distress, lying in bed comfortable HEENT: NC/AT, MMM Lungs: nonlabored breathing, CTAB CVS: [id number], RRR Abd: nl bowel sounds, soft, NT / ND : no casey Ext: no edema Neuro: AAOx3 Psych: calm cooperative Discharge Plan Discharge Items Patient Disposition: Home - Self-Care Reason For Visit: URETERAL STONE Discharge Diagnosis: b/l Ureteral stones s/p b/l ureteral stenting Condition on Discharge: Serious Activity: Resume your previous activity Non-emergency contact: Primary Care Provider and Urologist Call non-emergency contact if: you have any medication questions, your pain is not controlled and you have a fever Follow-up/Referrals: Chong Mcdermott MD [Primary Care Provider] - Anil Acuña DO [Physician] - Diet: Heart Healthy Addtl Attending Provider Instructions: - follow up with Dr. Acuña (urologist) in about 2 weeks. Please call office for appointment - if you have fever please call urologist office for further recommendations Pending Studies at Discharge: No Stand-Alone Forms: [facility] [employer], Smoking Cessation Medications and DC Order Prescriptions: New acetaminophen 325 mg Tablet 650 mg PO Q4H Qty: 30 0RF phenazopyridine [Pyridium] 200 mg Tablet 200 mg PO TID Qty: 6 0RF sennosides-docusate sodium [Senokot-S] 8.6-50 mg Tablet 1 tab PO BID Qty: 60 0RF tramadol 50 mg Tablet 50 mg PO Q4H PRN (Reason: pain) Qty: 15 0RF tamsulosin 0.4 mg Capsule 0.4 mg PO QAM Qty: 30 0RF oxybutynin chloride 5 mg Tablet 5 mg PO BID Qty: 60 0RF Continued mecobalamin (vitamin B12) 1,000 mcg tablet,chewable 1,000 mcg PO DAILY Qty: 30 0RF amlodipine 2.5 mg tablet 2.5 mg PO DAILY Qty: 90 3RF escitalopram oxalate [Lexapro] 10 mg tablet 10 mg PO HS Qty: 90 3RF levothyroxine 75 mcg tablet 75 mcg PO QAM Qty: 90 3RF simvastatin 20 mg tablet 20 mg PO HS Qty: 90 3RF diphenhydramine HCl [Benadryl Allergy] 25 mg Tablet 25 - 50 mg PO DAILY PRN (Reason: sleep/allergy symptoms) cholecalciferol (vitamin D3) [Vitamin D3] 50 mcg (2,000 unit) Tablet 50 mcg PO HS Rx Instructions: PER PT "HAVEN'T BEEN TAKING LATELY". multivitamin Tablet 1 tab PO DAILY Discontinued nabumetone 500 mg Tablet 500 mg PO BID PRN (Reason: Pain) Patient Comments: Per patient this is a old medication she was given in 2014 but she was in a lot of pain so she took it this morning. 12/30/24 Discharge Orders: Discharge Order (Routine); Ordered 12/31/24 Ordered By: Jacquelyn Morales Admission Data Admit Date/Time: 12/30/24 11:11 Attending Provider: Jacquelyn Morales Admit Provider: Jacquelyn Morales Primary Care Provider: Chong Mcdermott Hospital Stay Data Procedures Performed Operation Date: 12/30/24 10:30 Actual Procedures p Cystoscopy(Bilateral) - Anil Acuña DO p Cystoscopy, Ureteral Dilation, Bilateral Ureteroscopy, Retrograde Pyelogram, Right Kidney Aspiration, Bilateral Stent Insertion(Bilateral) - Anil Acuña, Diagnostic Imagining Performed 12/30/24 FL retrograde includes kub Routine 12/30/24 08:34 CT Abd and Pelvis [CT abd pelvis wo con] Stat Discharge Instructions Given to Patient (Per Discharging Provider) - follow up with Dr. Acuña (urologist) in about 2 weeks. Please call office for appointment - if you have fever please call urologist office for further recommendations Total Time Total Time Spent Total Time Spent (In Minutes): 45 Coding Level of Care Code 89337 INP/OBS DISCH >30 MIN Diagnoses RONNELL (acute kidney injury) N17.9 Bilateral kidney stones N20.0 Difficulty urinating R39.198 Bilateral ureteral calculi N20.1
[2024-12-31 11:33] VITALS: BP 105/65; PULSE 62; TEMP 97.9; O2SAT 92
== END 2024-12-31 12:41 | disposition home or self-care (01) ==
LOC: ED 08:20 → OR 11:05 → 3N 11:05 → SUATTDRO 11:11